=== PATIENT | female | born 1980 | race African-American/Black ===

== ENCOUNTER 2019-11-08 09:03 | Emergency (ER) | payer OTHER ==
--- NOTE | 2019-11-08 11:12 | ER Document Report ---
ED Medical Screen (RME) - General Chief Complaint: Abdominal Pain Stated Complaint: ABDOMINAL PAIN/FEVER/BODY ACHES Time Seen by Provider: 11/08/19 11:11 Mode of Arrival: Ambulatory Information source: Patient Notes: Patient is a 38-year-old female comes emergency room complaining of feeling feverish with abdominal pain. Patient states that she started feeling uncomfortable 2 days ago but yesterday she spiked a fever to 100.7 she took her temp 2 hours later was 101.0 she took some Excedrin because she also had a migraine with a fever and went to bed when she got up this morning the fever was gone and she felt a little better but she still is having abdominal pain and discomfort. She denies any association with anyone along with COVID. She currently is a mother of 4 and her is out of town appointment and she is concerned and primarily with her abdominal pain. She is currently on her menses patient is 3 para 2 with 1 miscarriage her pain is on the right side of her body. She denies any dysuria. Patient is a well-nourished well-developed 38-year-old female who is in no apparent distress on examination. Cardiac: Regular rate and rhythm no murmurs. Lungs: Bilateral breath sounds breath sounds increased clear throughout. Abdomen. In the sitting position very difficult to ascertain exact area of patient's discomfort however she is having some palpable pain in the right side more lateral than periumbilical but also in the right upper to mid area as well. Bowel sounds are present all 4 quads. I have greeted and performed a rapid initial assessment of this patient. A comprehensive ED assessment and evaluation of the patient, analysis of test results and completion of the medical decision making process will be conducted by additional ED providers. Dictation of this chart was performed using voice recognition software; therefore, there may be some unintended grammatical errors. At this stage is very call to give a differential although kidney stones are possible along with the ruptured ovarian cyst and appendix and gallbladder. Further evaluations could need to be made in a supine position for more pinpoint location. Physical Exam - Vital signs Vitals: Temp Pulse Resp BP Pulse Ox 98.3 F 61 16 106/75 100 11/08/19 09:12 11/08/19 09:12 11/08/19 09:12 11/08/19 09:12 11/08/19 09:12 Course - Vital Signs Vital signs: Temp Pulse Resp BP Pulse Ox 98.3 F 61 16 106/75 100 11/08/19 09:12 11/08/19 09:12 11/08/19 09:12 11/08/19 09:12 11/08/19 09:12
[2019-11-08 12:12] LABS: APPEARANCE,URINE SLIGHTLY-CLOUDY; BILIRUBIN,URINE NEGATIVE (NEGATIVE); COLOR,URINE YELLOW; GLUCOSE, URINE NEGATIVE (NEGATIVE); KETONES,URINE NEGATIVE (NEGATIVE); LEUKOCYTE ESTERASE,URINE MODERATE (NEGATIVE); NITRITE,URINE POSITIVE (NEGATIVE); PROTEIN,URINE 30 mg/dL (NEGATIVE); URINE SPECIFIC GRAVITY 1.013; UROBILINOGEN,URINE NEGATIVE mg/dL (<2.0)
[2019-11-08 12:16] LABS: ABSOLUTE EOSINOPHILS # (AUTO) 0.1 10^3/uL (0.0-0.6); ABSOLUTE LYMPHOCYTES (AUTO) 1.1 10^3/uL (0.5-4.7); ABSOLUTE MONOCYTES (AUTO) 0.5 10^3/uL (0.1-1.4); ABSOLUTE NEUT (AUTO) 4.3 10^3/uL (1.7-8.2); BASOPHILS % (AUTO) 0.8 % (0-2); EOSINOPHILS % (AUTO) 1.9 % (0-6); HEMATOCRIT 34.7 % (36.0-47.0); HEMOGLOBIN 11.3 g/dL (12.0-15.5); LYMPHOCYTES % (AUTO) 17.8 % (13-45); MEAN CORPUSCULAR HGB CONC 32.5 g/dL (32.0-36.0); MEAN CORPUSCULAR VOLUME 77 fl (80-97); MONOCYTES % (AUTO) 8.3 % (3-13); PLATELET COUNT 206 10^3/uL (150-450); RED BLOOD COUNT 4.52 10^6/uL (3.72-5.28); RED CELL DISTRIBUTION WIDTH 15.9 % (11.5-14.0); SEGMENTED NEUTROPHILS % (AUTO) 71.2 % (42-78); TOTAL CELLS COUNTED % (AUTO) 100 %
[2019-11-08 12:31] LABS: ALBUMIN 4.3 g/dL (3.5-5.0); ALKALINE PHOSPHATASE 52 U/L (38-126); ANION GAP 8 (5-19); ASPARTATE AMINO TRANSFERASE 22 U/L (14-36); BILIRUBIN,TOTAL 0.9 mg/dL (0.2-1.3); BLOOD UREA NITROGEN 5 mg/dL (7-20); CALCIUM 9.1 mg/dL (8.4-10.2); CARBON DIOXIDE 26 mmol/L (22-30); CHLORIDE 107 mmol/L (98-107); GLUCOSE 96 mg/dL (75-110); POTASSIUM 4.4 mmol/L (3.6-5.0); TOTAL PROTEIN 7.8 g/dL (6.3-8.2)
--- NOTE | 2019-11-08 13:37 | ER Document Report ---
ED GI/ - General Chief Complaint: Abdominal Cramping Stated Complaint: ABDOMINAL PAIN/FEVER/BODY ACHES Time Seen by Provider: 11/08/19 11:11 Mode of Arrival: Ambulatory Information source: Patient Notes: 38-year-old female patient presents emergency department chief complaint of low abdominal pain with low-grade fever. She also reports intermittent headaches. Denies any nausea, vomiting, diarrhea. Denies any abnormal vaginal discharge, pelvic pain. No concern for . - Related Data Allergies/Adverse Reactions: fluoxetine [From Prozac] Allergy (Verified 11/08/19 11:33) nitrofurantoin [From Macrobid] Allergy (Verified 11/08/19 11:33) prochlorperazine [From Compazine] Allergy (Verified 11/08/19 11:33) Past Medical History - General Information source: Patient - Social History Smoking Status: Unknown if Ever Smoked Family History: Reviewed & Not Pertinent - Medical History Medical History: Negative Surgical Hx: Negative - Immunizations Immunizations up to date: Yes Review of Systems - Review of Systems Constitutional: Fever EENT: No symptoms reported Cardiovascular: No symptoms reported Respiratory: No symptoms reported Gastrointestinal: Abdominal pain Genitourinary: Frequency Female Genitourinary: No symptoms reported Musculoskeletal: No symptoms reported Skin: No symptoms reported Hematologic/Lymphatic: No symptoms reported Neurological/Psychological: No symptoms reported Physical Exam - Vital signs Vitals: Temp Pulse Resp BP Pulse Ox 98.3 F 61 16 106/75 100 11/08/19 09:12 11/08/19 09:12 11/08/19 09:12 11/08/19 09:12 11/08/19 09:12 - Notes Notes: PHYSICAL EXAMINATION: GENERAL: Well-appearing, well-nourished and in no acute distress. HEAD: Atraumatic, normocephalic. EYES: Pupils equal round and reactive to light, extraocular movements intact, conjunctiva are normal. ENT: Nares patent, oropharynx clear without exudates. Moist mucous membranes. NECK: Normal range of motion, supple without lymphadenopathy LUNGS: Breath sounds clear to auscultation bilaterally and equal. No wheezes rales or rhonchi. HEART: Regular rate and rhythm without murmurs ABDOMEN: Soft, nontender, nondistended abdomen. No guarding, no rebound. No masses appreciated. Female : No CVA tenderness. Musculoskeletal: Normal range of motion, no pitting or edema. No cyanosis. NEUROLOGICAL: Cranial nerves grossly intact. Normal speech, normal gait. Normal sensory, motor exams PSYCH: Normal mood, normal affect. SKIN: Warm, Dry, normal turgor, no rashes or lesions noted. Course - Re-evaluation Re-evalutation: Laboratory 11/08/19 11/08/19 11/08/19 11:35 11:35 11:35 WBC 6.0 RBC 4.52 Hgb 11.3 L Hct 34.7 L MCV 77 L MCH 25.0 L MCHC 32.5 RDW 15.9 H Plt Count 206 Lymph % (Auto) 17.8 [place] % (Auto) 8.3 Eos % (Auto) 1.9 Baso % (Auto) 0.8 Absolute Neuts (auto) 4.3 Absolute Lymphs (auto) 1.1 Absolute Monos (auto) 0.5 Absolute Eos (auto) 0.1 Absolute Basos (auto) 0.0 Seg Neutrophils % 71.2 Sodium 140.8 Potassium 4.4 Chloride 107 Carbon Dioxide 26 Anion Gap 8 BUN 5 L Creatinine 0.85 Est GFR ( Amer) > 60 Est GFR (MDRD) Non-Af > 60 Glucose 96 Calcium 9.1 Total Bilirubin 0.9 Direct Bilirubin 0.0 Neonat Total Bilirubin Not Reportable Neonat Direct Bilirubin Not Reportable Neonat Indirect Bili Not Reportable AST 22 ALT 17 Alkaline Phosphatase 52 Total Protein 7.8 Albumin 4.3 Urine Color YELLOW Urine Appearance SLIGHTLY-CLOUDY Urine pH 5.0 Ur Specific [place] 1.013 Urine Protein 30 H Urine Glucose (UA) NEGATIVE Urine Ketones NEGATIVE Urine Blood SMALL H Urine Nitrite POSITIVE H Urine Bilirubin NEGATIVE Urine Urobilinogen NEGATIVE Ur Leukocyte Esterase MODERATE H Urine WBC (Auto) 32 Urine RBC (Auto) 4 Urine Bacteria (Auto) TRACE Squamous Epi Cells Auto 1 Urine Mucus (Auto) FEW Urine Ascorbic Acid 40 H Urine HCG, Qual NEGATIVE Laboratory 11/08/19 11/08/19 11/08/19 11:35 11:35 11:35 WBC 6.0 RBC 4.52 Hgb 11.3 L Hct 34.7 L MCV 77 L MCH 25.0 L MCHC 32.5 RDW 15.9 H Plt Count 206 Lymph % (Auto) 17.8 [place] % (Auto) 8.3 Eos % (Auto) 1.9 Baso % (Auto) 0.8 Absolute Neuts (auto) 4.3 Absolute Lymphs (auto) 1.1 Absolute Monos (auto) 0.5 Absolute Eos (auto) 0.1 Absolute Basos (auto) 0.0 Seg Neutrophils % 71.2 Sodium 140.8 Potassium 4.4 Chloride 107 Carbon Dioxide 26 Anion Gap 8 BUN 5 L Creatinine 0.85 Est GFR ( Amer) > 60 Est GFR (MDRD) Non-Af > 60 Glucose 96 Calcium 9.1 Total Bilirubin 0.9 Direct Bilirubin 0.0 Neonat Total Bilirubin Not Reportable Neonat Direct Bilirubin Not Reportable Neonat Indirect Bili Not Reportable AST 22 ALT 17 Alkaline Phosphatase 52 Total Protein 7.8 Albumin 4.3 Urine Color YELLOW Urine Appearance SLIGHTLY-CLOUDY Urine pH 5.0 Ur Specific [place] 1.013 Urine Protein 30 H Urine Glucose (UA) NEGATIVE Urine Ketones NEGATIVE Urine Blood SMALL H Urine Nitrite POSITIVE H Urine Bilirubin NEGATIVE Urine Urobilinogen NEGATIVE Ur Leukocyte Esterase MODERATE H Urine WBC (Auto) 32 Urine RBC (Auto) 4 Urine Bacteria (Auto) TRACE Squamous Epi Cells Auto 1 Urine Mucus (Auto) FEW Urine Ascorbic Acid 40 H Urine HCG, Qual NEGATIVE Patient appears well, nontoxic, urinalysis consistent with urinary tract infection. Will start patient on outpatient antibiotics. ED return precautions discussed, patient verbalized understanding and agreement with same. Urine culture pending. - Vital Signs Vital signs: Temp Pulse Resp BP Pulse Ox 98.1 F 64 16 111/73 100 11/08/19 13:44 11/08/19 13:44 11/08/19 13:44 11/08/19 13:44 11/08/19 13:44 - Laboratory Result Diagrams: 11/08/19 11:35 11/08/19 11:35 Laboratory results interpreted by me: 11/08/19 11/08/19 11/08/19 11:35 11:35 11:35 Hgb 11.3 L Hct 34.7 L MCV 77 L MCH 25.0 L RDW 15.9 H BUN 5 L Urine Protein 30 H Urine Blood SMALL H Urine Nitrite POSITIVE H Ur Leukocyte Esterase MODERATE H Urine Ascorbic Acid 40 H Discharge - Discharge Clinical Impression: UTI (urinary tract infection) Qualifiers: Urinary tract infection type: site unspecified Hematuria presence: without hematuria Qualified Code(s): N39.0 - Urinary tract infection, site not specified Condition: Stable Disposition: HOME, SELF-CARE Additional Instructions: Your urine shows findings consistent with a urinary tract infection. Please take all the antibiotics as directed even if your symptoms have improved. Please follow-up with your primary care physician as needed. Return to emergency room if you develop fever >101F, persistent vomiting, become lethargic, have severe pain in your sides, or any other symptoms that are concerning to you. You have also been tested today for COVID-19. Your results should take 3 to 4 days to come back, someone will call you with these results. Please self quarantine until you have received these results. Please return to the emergency department with any new or significantly worsening symptoms. Continue to drink plenty of fluids. Tylenol or ibuprofen for pain. Prescriptions: Cephalexin [Keflex] 500 mg PO BID #14 capsule
[2019-11-08 14:00] VITALS: BP 111/73
== END 2019-11-08 13:59 | disposition home or self-care (01) ==
LOC: ER 09:03
DX: N39.0 Urinary tract infection, site not specified (principal); R10.9 Unspecified abdominal pain; R50.9 Fever, unspecified; M79.10 Myalgia, unspecified site; R10.30 Lower abdominal pain, unspecified; R51 Headache; Z20.828 Contact with and (suspected) exposure to other viral communicable diseases
CPT/HCPCS: 99283; 36415; 87086; 85025; 87635; 81025; 87088; 80053; 81001; 87186; C9803